=== PATIENT | male | born 1960 | race Caucasian/White ===

== ENCOUNTER 2016-09-10 17:12 | Emergency (ER) | payer BC ==
[2016-09-10 17:54] VITALS: BP 117/69
--- NOTE | 2016-09-10 17:56 | UC ---
Knee Pain HPI - HPI Summary HPI Summary: The patient comes in today for: 1. Right knee pain: Onset: 3 days ago, the knee started feeling-"Not right." The swelling started last night. Palliative/provocative: Pressure makes it worse; no pressure makes it better. Quality: Soreness, Region: Right knee Severity: 1/10 and only with pushing on it. Time: Constant. Associated symptoms: He noticed a lesion which looked like a pustule. He picked at it but did not see any pus. Since he has noticed increased redness, warmth, and tenderness. Fevers: None. 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 HOme Rx: NOthing. He states that he can't take ibuprofen or Aleve due to his blood thinner. He has taken tramadol for his arthritis. * - History of Current Complaint Chief Complaint: UCLowerExtremity Stated Complaint: KNEE PAIN,SWELLING Time Seen by Provider: 09/10/16 17:49 Hx Obtained From: Patient, Family/Stone Grader - Allergies/Home Medications Allergies/Adverse Reactions: Allergies Allergy/AdvReac Type Severity Reaction Status Date / Time No Known Allergies Allergy Verified 09/10/16 17:43 PMH/Surg Hx/FS Hx/Imm Hx Previously Healthy: No - BPH Endocrine History Of: Reports: Dyslipidemia Denies: Diabetes, Thyroid Disease, Hyperthyroidism, Hypothyroidism Cardiovascular History Of: Reports: Cardiac Disorders - A-FIB, Atrial Fibrillation Denies: Hypertension, Pacemaker/ICD, Myocardial Infarction, Congestive Heart Failure, Deep Vein Thrombosis, Bleeding Disorders Respiratory History Of: Denies: COPD, Asthma, Bronchitis, Pneumonia, Pulmonary Embolism GI/ History Of: Reports: Gastroesophageal Reflux Denies: Ulcer, Gastrointestinal Bleed, Gall Bladder Disease, Kidney Stones, Diverticulitis, Renal Disease, Urosepsis Neurological History Of: Denies: TIA, CVA, Dementia, Seizures, Migraine Psychological History Of: Reports: Anxiety, Depression Denies: Bipolar Disorder, Schizophrenia, Post Traumatic Stress Disorder Cancer History Of: Denies: Lung Cancer, Colorectal Cancer, Breast Cancer, Prostate Cancer, Cervical Cancer Other History Of: Anticoagulant Therapy - Xarelto. Negative For: HIV, Hepatitis B, Hepatitis C - Surgical History Surgical History: Yes Surgery Procedure, Year, and Place: gallbladder removed - Family History Known Family History: Positive: Cardiac Disease, Hypertension, Diabetes, Other - HERNIA Family History: Per EMR from 10/22/2015, negative fhx of early CAD or cardiac arrhythmias. - Social History Occupation: Employed Full-time Lives: With Family Alcohol Use: Rare Substance Use Type: None Substance Use Comment - Amount & Last Used: Pt states he drinks one cup a coffee a day now Smoking Status (MU): Former Smoker Type: Cigarettes Length of Time of Smoking/Using Tobacco: 40yrs When Did the Patient Quit Smoking/Using Tobacco: MAY, 2015 Household Exposure Type: Cigarettes - Immunization History Most Recent Influenza Vaccination: never Most Recent Tetanus Shot: 6-10 yrs ago Most Recent Pneumonia Vaccination: none Review of Systems Constitutional: Negative Skin: Rash - Red anterior right knee. Eyes: Negative ENT: Negative Respiratory: Negative Cardiovascular: Negative Gastrointestinal: Negative Genitourinary: Negative All Other Systems Reviewed And Are Negative: Yes Physical Exam Triage Information Reviewed: Yes Appearance: Well-Appearing, No Pain Distress, Well-Nourished Vital Signs Reviewed: Yes Eyes: Positive: Conjunctiva Clear. Negative: Discharge ENT: Positive: Hearing grossly normal. Negative: Pharyngeal erythema, Nasal congestion, Nasal drainage, TM bulging, TM dull, TM red, Tonsillar swelling, Tonsillar exudate Dental: Negative: Gross Decay/Caries @, Dental Fracture @ Neck: Positive: Supple, Nontender, No Lymphadenopathy. Negative: Nuchal Rigidity Respiratory: Positive: Lungs clear, No respiratory distress, No accessory muscle use. Negative: Crackles, Wheezing Cardiovascular: Positive: RRR, No Murmur Abdomen Description: Positive: Nontender, No Organomegaly, Soft. Negative: Distended, Guarding Musculoskeletal: Positive: Strength Intact, ROM Intact, Other: - Right leg: There is some redness over the anterior patella. There is minimal tenderness. There is about several cc's of fluid in the patellar bursa. It is warm. He has full range of motion of the knee. There are no breaks in the skin seen in the area of the right knee. And there are no tendern right inquinal lymph nodes. Neurological: Positive: Alert, Muscle Tone Normal Psychological: Positive: Age Appropriate Behavior, Consolable Skin: Positive: rashes - There is redness of the right knee.. Negative: breakdown Knee Pain Course/Dx - Course Course Of Treatment: Patient was told of the diagnostic options (infectious right knee bursitis, inflammatory right knee bursitis, and cellulitis with bursitis). He was told of his treatment options. At this time, he did not want a tap of the bursa to check for possible infectious bursitis, but did want to take prednisone (he is not able to take NSAIDS) and antibiotics for a possible cellulitis. - Differential Dx/Diagnosis Differential Diagnosis/HQI/PQRI: Bursitis, Cellulitis Provider Diagnoses: Right knee bursitis (inflammatory). Right knee cellulitis. Discharge - Discharge Plan Condition: Stable Disposition: HOME Patient Education Materials: Knee Bursitis (ED), Cellulitis (ED) Referrals: Luis Riley MD [Primary Care Provider] - 3 Days (Please see your primary care provider in seveal days to see how well you are doing. If you get worse, please be seen sooner.) Additional Instructions: Please stay off your knee--no kneeling for the next several days. Please take the medications as directed. IF you get worse, please be seen sooner.
== END 2016-09-10 18:31 | disposition home or self-care (01) ==
LOC: UCEAST 17:12
DX: M70.51 Other bursitis of knee, right knee (principal); Y93.89 Activity, other specified; L03.115 Cellulitis of right lower limb; I48.91 Unspecified atrial fibrillation; Z79.01 Long term (current) use of anticoagulants; Z90.49 Acquired absence of other specified parts of digestive tract; Z87.891 Personal history of nicotine dependence
CPT/HCPCS: 99212; G0463

== ENCOUNTER 2016-09-26 08:20 | Emergency (ER) | payer BC ==
[2016-09-26 08:50] VITALS: BP 117/75
--- NOTE | 2016-09-26 09:07 | UC ---
Respiratory Complaint HPI - HPI Summary HPI Summary: CHEST CONGESTION / COUGH X 7 DAYS + FEVER, CHILLS, BODY ACHES, + NASAL CONGESTION , PND - History of Current Complaint Chief Complaint: UCRespiratory Stated Complaint: WHEEZING,COUGH Time Seen by Provider: 09/26/16 08:23 Hx Obtained From: Patient Onset/Duration: Gradual Onset, Lasting Days - 7, Still Present Timing: Constant Severity Initially: Moderate Severity Currently: Moderate Character: Cough: Productive Aggravating Factors: Exertion, Deep Breaths Associated Signs And Symptoms: Positive: Fever, Chills, Wheezing, URI - Allergies/Home Medications Allergies/Adverse Reactions: Allergies Allergy/AdvReac Type Severity Reaction Status Date / Time No Known Allergies Allergy Verified 09/26/16 08:41 PMH/Surg Hx/FS Hx/Imm Hx Endocrine History Of: Reports: Dyslipidemia Denies: Diabetes, Thyroid Disease, Hyperthyroidism, Hypothyroidism Cardiovascular History Of: Reports: Cardiac Disorders - A-FIB, Atrial Fibrillation Denies: Hypertension, Pacemaker/ICD, Myocardial Infarction, Congestive Heart Failure, Deep Vein Thrombosis, Bleeding Disorders Respiratory History Of: Denies: COPD, Asthma, Bronchitis, Pneumonia, Pulmonary Embolism GI/ History Of: Reports: Gastroesophageal Reflux Denies: Ulcer, Gastrointestinal Bleed, Gall Bladder Disease, Kidney Stones, Diverticulitis, Renal Disease, Urosepsis Neurological History Of: Denies: TIA, CVA, Dementia, Seizures, Migraine Psychological History Of: Reports: Anxiety, Depression Denies: Bipolar Disorder, Schizophrenia, Post Traumatic Stress Disorder Cancer History Of: Denies: Lung Cancer, Colorectal Cancer, Breast Cancer, Prostate Cancer, Cervical Cancer Other History Of: Anticoagulant Therapy - Xarelto. Negative For: HIV, Hepatitis B, Hepatitis C - Surgical History Surgical History: Yes Surgery Procedure, Year, and Place: gallbladder, tonsils removed - Family History Known Family History: Positive: Cardiac Disease, Hypertension, Diabetes, Other - HERNIA Family History: Per EMR from 10/22/2015, negative fhx of early CAD or cardiac arrhythmias. - Social History Alcohol Use: Rare Substance Use Type: None Substance Use Comment - Amount & Last Used: Pt states he drinks one cup a coffee a day now Smoking Status (MU): Former Smoker Type: Cigarettes Length of Time of Smoking/Using Tobacco: 40yrs When Did the Patient Quit Smoking/Using Tobacco: MAY, 2015 Household Exposure Type: Cigarettes - Immunization History Most Recent Influenza Vaccination: never Most Recent Tetanus Shot: 6-10 yrs ago Most Recent Pneumonia Vaccination: none Review of Systems Constitutional: Fever, Chills, Fatigue Skin: Negative Eyes: Negative ENT: Nasal Discharge Respiratory: Cough Cardiovascular: Negative Gastrointestinal: Negative All Other Systems Reviewed And Are Negative: Yes Physical Exam Triage Information Reviewed: Yes Appearance: Well-Appearing, No Pain Distress, Well-Nourished Vital Signs: Initial Vital Signs Temp 99.2 F 09/26/16 08:33 Pulse 65 09/26/16 08:33 Resp 18 09/26/16 08:33 BP 117/75 09/26/16 08:33 Pulse Ox 99 09/26/16 08:33 Vital Signs Reviewed: Yes Eyes: Positive: Conjunctiva Clear ENT: Positive: Normal ENT inspection, Hearing grossly normal, Pharyngeal erythema, Nasal congestion, Nasal drainage, TMs normal Neck exam: Normal Neck: Positive: Supple, Nontender, No Lymphadenopathy Respiratory: Positive: Chest non-tender, Lungs clear, Normal breath sounds Cardiovascular: Positive: RRR, No Murmur, Pulses Normal Skin Exam: Normal UC Diagnostic Evaluation - Laboratory O2 Sat by Pulse Oximetry: 99 Respiratory Course/Dx - Differential Dx/Diagnosis Provider Diagnoses: ACUTE BRONCHITIS Discharge - Discharge Plan Condition: Stable Disposition: HOME Prescriptions: Albuterol HFA INHALER* [Ventolin HFA Inhaler*] 2 puff INH Q4H PRN #1 mdi PRN Reason: Wheezing DOXYcycline CAP(*) [DOXYcycline 100MG CAP(*)] 100 mg PO BID #20 cap Patient Education Materials: Acute Bronchitis (ED) Referrals: Luis Riley MD [Primary Care Provider] - 7 Days
== END 2016-09-26 09:22 | disposition home or self-care (01) ==
LOC: UCCORT 08:20
DX: J20.9 Acute bronchitis, unspecified (principal); Z79.01 Long term (current) use of anticoagulants; Z87.891 Personal history of nicotine dependence
CPT/HCPCS: 99212; G0463

== ENCOUNTER 2016-09-29 12:03 | Emergency (ER) | payer BC ==
[2016-09-29 13:10] VITALS: BP 113/73
--- NOTE | 2016-09-29 13:42 | UC ---
Skin Complaint HPI - HPI Summary HPI Summary: Was treated 3d ago for "bronchitis" with doxycycline and albuterol inhaler. Today he developed a rash on his face, slightly itchy and irritated. No rash elsewhere. No wheezing. Has a productive cough. Feels quite a bit better than he did 3d ago, questions his need for an antibiotic. Able to eat and drink well. - History of Current Complaint [facility] Time Seen by Provider: 09/29/16 13:21 Stated Complaint: SKIN COMPLAINT Hx Obtained From: Patient Onset/Duration: Gradual Onset, Lasting Weeks - 1 Timing: Constant Onset Severity: Mild Current Severity: Mild Character: Redness Aggravating: Nothing Alleviating: Nothing Associated Signs & Symptoms: Positive: Cough, Hoarseness, Rash - facial only. Negative: Throat Tightening - Allergy/Home Medications Allergies/Adverse Reactions: Allergies Allergy/AdvReac Type Severity Reaction Status Date / Time No Known Allergies Allergy Verified 09/26/16 08:41 Review of Systems Constitutional: Fatigue Skin: Rash - facial, bilat Eyes: Negative ENT: Nasal Discharge Respiratory: Cough Cardiovascular: Negative Gastrointestinal: Negative Genitourinary: Negative Motor: Negative Neurovascular: Negative Musculoskeletal: Negative Neurological: Negative Psychological: Negative All Other Systems Reviewed And Are Negative: Yes PMH/Surg Hx/FS Hx/Imm Hx Endocrine History Of: Reports: Dyslipidemia Denies: Diabetes, Thyroid Disease, Hyperthyroidism, Hypothyroidism Cardiovascular History Of: Reports: Cardiac Disorders - afib, Atrial Fibrillation Denies: Hypertension, Pacemaker/ICD, Myocardial Infarction, Congestive Heart Failure, Deep Vein Thrombosis, Bleeding Disorders Respiratory History Of: Denies: COPD, Asthma, Bronchitis, Pneumonia, Pulmonary Embolism GI/ History Of: Reports: Gastroesophageal Reflux Denies: Ulcer, Gastrointestinal Bleed, Gall Bladder Disease, Kidney Stones, Diverticulitis, Renal Disease, Urosepsis Neurological History Of: Denies: TIA, CVA, Dementia, Seizures, Migraine Psychological History Of: Reports: Anxiety, Depression Denies: Bipolar Disorder, Schizophrenia, Post Traumatic Stress Disorder Cancer History Of: Denies: Lung Cancer, Colorectal Cancer, Breast Cancer, Prostate Cancer, Cervical Cancer Other History Of: Anticoagulant Therapy - Xarelto. Negative For: HIV, Hepatitis B, Hepatitis C - Surgical History Surgical History: Yes Surgery Procedure, Year, and Place: gallbladder removed - Family History Known Family History: Positive: Cardiac Disease, Hypertension, Diabetes, Other - HERNIA Family History: Per EMR from 10/22/2015, negative fhx of early CAD or cardiac arrhythmias. - Social History Occupation: Employed Full-time Lives: With Family Alcohol Use: Rare Substance Use Type: None Substance Use Comment - Amount & Last Used: Pt states he drinks one cup a coffee a day now Smoking Status (MU): Former Smoker Type: Cigarettes Length of Time of Smoking/Using Tobacco: 40yrs When Did the Patient Quit Smoking/Using Tobacco: MAY, 2015 Household Exposure Type: Cigarettes - Immunization History Most Recent Influenza Vaccination: never Most Recent Tetanus Shot: 6-10 yrs ago Most Recent Pneumonia Vaccination: none Physical Exam Triage Information Reviewed: Yes Appearance: Well-Appearing, No Pain Distress, Well-Nourished Vital Signs: Initial Vital Signs Temp 98.3 F 09/29/16 13:06 Pulse 59 09/29/16 13:06 Resp 16 09/29/16 13:06 BP 113/73 09/29/16 13:06 Pulse Ox 100 09/29/16 13:06 Vital Signs Reviewed: Yes Eye Exam: Normal Eyes: Positive: Conjunctiva Clear ENT: Positive: Hearing grossly normal, Pharynx normal, Nasal congestion, TMs normal, Muffled/hoarse voice - hoarse Neck exam: Normal Neck: Positive: Supple Respiratory Exam: Normal Respiratory: Positive: Lungs clear, Normal breath sounds, No respiratory distress, No accessory muscle use Cardiovascular Exam: Normal Musculoskeletal Exam: Normal Neurological Exam: Normal Psychological Exam: Normal Skin Exam: Other - patchy red, flat macular rash around left eye, on left and right cheeks Course/Dx - Differential Diagnoses - Skin Complaint Differential Diagnoses: Cellulitis, Contact Dermatitis, Drug Rash, Viral Exanthem - Diagnoses Provider Diagnoses: drug rash Discharge - Discharge Plan Condition: Stable Disposition: HOME Prescriptions: Cephalexin CAP* [Keflex 500 CAP*] 500 mg PO TID #30 cap Patient Education Materials: Antibiotic Medication Allergy (ED) Referrals: Luis Riley MD [Primary Care Provider] - Additional Instructions: STOP the doxycycline. IF your symptoms worsen, particularly if you start to run a fever or have difficulty breathing, then start the new antibiotic. At the moment, your symptoms sound viral, in which case no antibiotic will help. The cough will gradually improve, but may be with you for as long as 5 weeks total
== END 2016-09-29 13:43 | disposition home or self-care (01) ==
LOC: UCCORT 12:03
DX: L27.0 Generalized skin eruption due to drugs and medicaments taken internally (principal); T36.4X5A Adverse effect of tetracyclines, initial encounter; Y92.9 Unspecified place or not applicable; R05 Cough; I48.91 Unspecified atrial fibrillation; Z79.01 Long term (current) use of anticoagulants; Z90.49 Acquired absence of other specified parts of digestive tract; Z87.891 Personal history of nicotine dependence
CPT/HCPCS: 99212; G0463

== ENCOUNTER 2017-08-13 21:33 | Emergency (ER) | payer BC ==
--- NOTE | 2017-08-13 21:41 | UC ---
Upper Extremity HPI - HPI Summary HPI Summary: 57 year old male presents with complains of left index finger abscess . On a side note he had removed a piece of wood from that finger. He also had puss drain form that site x 2. - History of Current Complaint Stated Complaint: lft first finger complaint Time Seen by Provider: 08/13/17 21:41 Hx Obtained From: Patient Onset/Duration: Sudden Onset Severity Initially: Moderate Severity Currently: Moderate Pain Scale Used: 0-10 Numeric - 5 Character: Sharp Alleviating Factor(s): Nothing Associated Signs And Symptoms: Positive: Swelling - Allergies/Home Medications Allergies/Adverse Reactions: Allergies Allergy/AdvReac Type Severity Reaction Status Date / Time No Known Allergies Allergy Verified 08/13/17 22:02 PMH/Surg Hx/FS Hx/Imm Hx Previously Healthy: Yes Other History Of: Anticoagulant Therapy - Xarelto. Negative For: HIV, Hepatitis B, Hepatitis C - Surgical History Surgical History: Yes Surgery Procedure, Year, and Place: gallbladder removed - Family History Known Family History: Positive: Cardiac Disease, Hypertension, Diabetes, Other - HERNIA Family History: Per EMR from 10/22/2015, negative fhx of early CAD or cardiac arrhythmias. - Social History Alcohol Use: Rare Substance Use Type: None Substance Use Comment - Amount & Last Used: Pt states he drinks one cup a coffee a day now Smoking Status (MU): Former Smoker Type: Cigarettes Length of Time of Smoking/Using Tobacco: 40yrs When Did the Patient Quit Smoking/Using Tobacco: MAY, 2015 Household Exposure Type: Cigarettes - Immunization History Most Recent Influenza Vaccination: never Most Recent Tetanus Shot: 6-10 yrs ago Most Recent Pneumonia Vaccination: none Review of Systems Constitutional: Negative Skin: Other - left index finger abscess. Eyes: Negative ENT: Negative Respiratory: Negative Cardiovascular: Negative Gastrointestinal: Negative Genitourinary: Negative Motor: Negative Neurovascular: Negative Musculoskeletal: Negative Neurological: Negative Psychological: Negative All Other Systems Reviewed And Are Negative: Yes Physical Exam Triage Information Reviewed: Yes Vital Signs Reviewed: Yes Eye Exam: Normal ENT Exam: Normal Dental Exam: Normal Neck exam: Normal Neck: Positive: 1 Respiratory Exam: Normal Cardiovascular Exam: Normal Abdominal Exam: Normal Musculoskeletal Exam: Normal Neurological Exam: Normal Psychological Exam: Normal Skin: Positive: Other - left index finger abscess Upper Extremity Course/Dx - Differential Dx/Diagnosis Provider Diagnoses: left index finger abscess Discharge - Discharge Plan Condition: Stable Disposition: HOME Prescriptions: Sulfamethox/Trimethoprim DS* [Bactrim DS 800/160 TAB*] 1 tab PO BID #14 tab Patient Education Materials: Soft Tissue Foreign Body (ED), Abscess (ED) Referrals: Luis Yousif MD [Medical Doctor] - No Primary Care Phys,NOPCP [Primary Care Provider] -
[2017-08-13 22:02] VITALS: BP 146/87
[2017-08-13] MEDS ORDERED: Tetan/Diph/Pertus SYR(Tdap)* 0.5 ML SYR(BOOSTRIX) use SYR IM ONE (22:03)
[2017-08-13] MEDS ORDERED: Lidocaine 1% MPF* 2 ML VIAL INJ ONE (22:03)
[2017-08-13] MEDS ORDERED: Sulfamethox/Trimethoprim DS 800/160* TAB PO ONE ×2 (22:06→22:07)
--- NOTE | 2017-08-14 07:28 | RAD ---
INDICATION: Foreign body. TECHNIQUE: 3 views of the left index finger were obtained. FINDINGS: There is soft tissue swelling. The bones are in normal alignment. No fracture or radiopaque foreign body is seen. Joint spaces appear maintained. IMPRESSION: NO EVIDENCE FOR RADIOPAQUE FOREIGN BODY.
== END 2017-08-13 22:44 | disposition home or self-care (01) ==
LOC: UCCORT 21:33
DX: L02.512 Cutaneous abscess of left hand (principal); Z23 Encounter for immunization; Z79.01 Long term (current) use of anticoagulants; Z90.49 Acquired absence of other specified parts of digestive tract; Z87.891 Personal history of nicotine dependence
CPT/HCPCS: 73140; 87070; 87077; 87186; 87205; 87640; 87641; 90471; 90715; 99213; A9270-GY; G0463

== ENCOUNTER 2017-09-03 16:45 | Emergency (ER) | payer BC ==
[2017-09-03 18:00] VITALS: BP 126/74
[2017-09-03] MEDS ORDERED: Lidocaine 1%* 5 ML VIAL INJ ONE (18:43)
--- NOTE | 2017-09-03 19:19 | UC ---
Skin Complaint HPI - HPI Summary HPI Summary: pt c/o of tender area in left index finger. Pt was seen two weeks ago tih concern for FB in left index finger. I & D done with purulent drainage. Pt reports that the "abscess" has returned and can feel a "hard object in finger" X ray done at previous visit, no FB noted. - History of Current Complaint Chief Complaint: UCUpperExtremity Time Seen by Provider: 09/03/17 18:08 Stated Complaint: RE-CK LEFT POINTER FINGER Hx Obtained From: Patient Onset/Duration: Gradual Onset, Lasting Days, Worse Since - osnet Skin Exposure Onset/Duration: Weeks Ago Timing: Constant Onset Severity: Mild Current Severity: Moderate Pain Intensity: 0 Location: Discrete - left index finger Character: Swelling, Redness, Painful Aggravating Factor(s): Touch Alleviating Factor(s): Nothing Associated Signs & Symptoms: Positive: Tenderness Related History: Foreign Body - Allergy/Home Medications Allergies/Adverse Reactions: Allergies Allergy/AdvReac Type Severity Reaction Status Date / Time No Known Allergies Allergy Verified 09/03/17 17:51 Review of Systems Constitutional: Negative Skin: Other - tenderness, swelling Eyes: Negative ENT: Negative Respiratory: Negative Cardiovascular: Negative Gastrointestinal: Negative Genitourinary: Negative Motor: Negative Neurovascular: Negative Musculoskeletal: Edema - left lindex finger MIP joint Neurological: Negative Psychological: Negative Is Patient Immunocompromised?: No All Other Systems Reviewed And Are Negative: Yes PMH/Surg Hx/FS Hx/Imm Hx Previously Healthy: Yes Other History Of: Anticoagulant Therapy - Xarelto. Negative For: HIV, Hepatitis B, Hepatitis C - Surgical History Surgical History: Yes Surgery Procedure, Year, and Place: gallbladder removed - Family History Known Family History: Positive: Cardiac Disease, Hypertension, Diabetes, Other - HERNIA Family History: Per EMR from 10/22/2015, negative fhx of early CAD or cardiac arrhythmias. - Social History Occupation: Employed Full-time Lives: With Family Alcohol Use: Rare Substance Use Type: None Substance Use Comment - Amount & Last Used: Pt states he drinks one cup a coffee a day now Smoking Status (MU): Former Smoker Type: Cigarettes Length of Time of Smoking/Using Tobacco: 40yrs Have You Smoked in the Last Year: Yes When Did the Patient Quit Smoking/Using Tobacco: MAY, 2015 Household Exposure Type: Cigarettes - Immunization History Most Recent Influenza Vaccination: never Most Recent Tetanus Shot: 1/10/18 Most Recent Pneumonia Vaccination: none Physical Exam Triage Information Reviewed: Yes Appearance: Well-Appearing Vital Signs: Initial Vital Signs Temp 98.7 F 09/03/17 17:52 Pulse 65 09/03/17 17:52 Resp 16 09/03/17 17:52 BP 126/74 09/03/17 17:52 Pulse Ox 99 09/03/17 17:52 Eye Exam: Normal ENT Exam: Normal Dental Exam: Normal Neck exam: Normal Respiratory Exam: Normal Cardiovascular Exam: Normal Musculoskeletal: Positive: Edema @ - left index finger, MIP joint Neurological Exam: Normal Psychological Exam: Normal Skin Exam: Other - left index finger, MIP joint, slight swelling, tenderness, calloused area Course/Dx - Course Course Of Treatment: 1 cm long 2 mm wide splinter removed. - Differential Diagnoses - Skin Complaint Differential Diagnoses: Abscess, Foreign Body - Diagnoses Provider Diagnoses: FB removal. Incision and drainage of abscess Procedures - Incision and Drainage Site: left index finger, MIP joint, small purulent drainage, FB removed Anesthesia: Digital Instrument(s): Scalpel Discharge - Discharge Plan Condition: Stable Disposition: HOME Prescriptions: Cephalexin CAP* [Keflex 500 CAP*] 500 mg PO Q12H #20 cap Patient Education Materials: Soft Tissue Foreign Body (ED), Abscess (ED) Referrals: No Primary Care Phys,NOPCP [Primary Care Provider] -
== END 2017-09-03 19:32 | disposition home or self-care (01) ==
LOC: UCCORT 16:45
DX: S60.451A Superficial foreign body of left index finger, initial encounter (principal); W45.8XXA Other foreign body or object entering through skin, initial encounter; Y92.9 Unspecified place or not applicable; L03.012 Cellulitis of left finger
CPT/HCPCS: 10120; 99212; G0463

== ENCOUNTER 2018-08-05 07:02 | Emergency (ER) | payer BC ==
[2018-08-05 07:25] VITALS: BP 135/75
--- NOTE | 2018-08-05 07:45 | UC ---
Respiratory Complaint HPI - HPI Summary HPI Summary: Patient presents to urgent care with his . Patient denies a history of respiratory diagnoses patient patient does have A. fib and hypertension. Patient states last week, last , he had cold and congestion. Patient states he took [id number] Mucinex and his symptoms improved. Patient states he felt well Friday and Friday. Patient states he woke up yesterday morning with a coarse cough. Patient states he has coughing fits that make him feel nauseous and gags. Patient has not vomited. Patient states he has wheezing if he "take a deep breathe." Patient states his cough is mostly dry but occasionally has yellow sputum. Patient with chills but no documented fever. Pt with WALKER from coughing. No analgesia taken. Pt tool Mucinex this am. Patient did not get the flu vaccine this year. Patient was around his grandchildren ast week that were sick with "head colds." Patient states he is in sinus rhythm for the last 6 months. Patient is on metoprolol and flecainide which keeps it "regular." Patient is not on anticoagulation. Patient had negative cardiac stress test in the fall of 2017. Patient's is not sick. Patient used to smoke but quit 3 years ago. Patient's medications reviewed this visit. - History of Current Complaint Chief Complaint: UCRespiratory Stated Complaint: COUGH Time Seen by Provider: 08/05/18 07:37 Hx Obtained From: Patient, Family/High Reach Operator Timing: Intermittent Episodes Severity Initially: Mild Severity Currently: Mild Pain Intensity: 4 - Allergies/Home Medications Allergies/Adverse Reactions: Allergies Allergy/AdvReac Type Severity Reaction Status Date / Time No Known Allergies Allergy Verified 08/05/18 07:25 Home Medications: Home Medications Flecainide TAB* [Tambocor TAB*] 100 mg PO BID 08/05/18 [History Confirmed ] Naproxen Sodium [Naproxen 220 mg] 220 mg PO ONCE PRN 08/05/18 [History Confirmed 08/05/18] Phenylephrine/Dm/Acetaminop/GG [Mucinex Fast-Max Cold-Flu Liq] 180 ml PO ONCE PRN 08/05/18 [History Confirmed 08/05/18] traMADol TAB* [Ultram*] 1 - 2 tab PO Q6HR PRN 08/05/18 [History Confirmed ] PMH/Surg Hx/FS Hx/Imm Hx Previously Healthy: Yes Cardiovascular History: Hypertension, Atrial Fibrillation Other History Of: Anticoagulant Therapy - Xarelto. Negative For: HIV, Hepatitis B, Hepatitis C - Surgical History Surgical History: Yes Surgery Procedure, Year, and Place: gallbladder removed - Family History Known Family History: Positive: Cardiac Disease, Hypertension, Diabetes, Other - HERNIA, Non-Contributory Family History: Per EMR from 10/22/2015, negative fhx of early CAD or cardiac arrhythmias. - Social History Lives: With Family Alcohol Use: Rare Substance Use Type: None Substance Use Comment - Amount & Last Used: Pt states he drinks one cup a coffee a day now Smoking Status (MU): Former Smoker Type: Cigarettes Length of Time of Smoking/Using Tobacco: 40yrs Have You Smoked in the Last Year: Yes When Did the Patient Quit Smoking/Using Tobacco: MAY, 2015 Household Exposure Type: Cigarettes - Immunization History Most Recent Influenza Vaccination: never Most Recent Tetanus Shot: 08/13/17 Most Recent Pneumonia Vaccination: none Review of Systems All Other Systems Reviewed And Are Negative: Yes Constitutional: Positive: Chills, Fatigue Skin: Positive: Negative Respiratory: Positive: Cough, Other - wheezing Cardiovascular: Positive: Negative Gastrointestinal: Positive: Negative Genitourinary: Positive: Negative Neurological: Positive: Headache - from coughing Physical Exam - Summary Physical Exam Summary: Vital Signs Reviewed: Yes A+Ox3, no distress Eyes: Conjunctiva Clear, MARISOL. EOM intact and full ENT: Hearing grossly normal TM x 2 clear, turbinates inflammed and boggy, mmoist, uvula midline, no exudate, no erythema Neck: Positive: Supple Respiratory: Positive: coarse cough, expiratory wheeze diffuse, right upper lung field rhonci no accessory muscle use Cardiovascular: RRR nl s1, s2 no m/r CBT <2 sec abd soft + BS nt/nd no guarding, no distension Musculoskeletal Exam: NOLAN x 4 without difficulty Strength Intact, ROM Intact Neurological: Positive: Alert, + sensation throughout Psychological: Positive: Normal Response To Family Skin: Positive: no rash, no ecchymosis Triage Information Reviewed: Yes Vital Signs: Initial Vital Signs Temp 98.7 F 08/05/18 07:12 Pulse 73 08/05/18 07:12 Resp 20 08/05/18 07:12 BP 135/75 08/05/18 07:12 Pulse Ox 95 08/05/18 07:12 Diagnostic Evaluation - Laboratory O2 Sat by Pulse Oximetry: 95 - Radiology Radiology Interpretation Completed By: Radiologist - Patient Name: MARSHALL HELTON Medical Record#: [id number] Re-Evaluation - Re-Evaluation First Eval Re-Evaluation Time: 08:57 Change: Improved - Pt markedly improved - no cough, no wheeze able to take deep breaths reviewed CXR with pt and recommend hydration will give amox - h/o tobacco use, relpasing illness pred mdi with spacer care with decongestants second to h/o a fib Respiratory Course/Dx - Course Course Of Treatment: Pt presents to with . Pt states has had cough and congestion last week - sx improved and returned on Friday. pt with coarse cough with wheezing. Pt denies sob except with coughing. Pt with chills, no fevers. Pt with h/o a fib and previous tobacco use. On exam, slightly decreased sat at 95% Pt with expiratory wheeze. rhonci right upper lobe. Will check CXR. duo neb and reassess. suspect bronchitis - Differential Dx/Diagnosis Provider Diagnosis: Acute bronchitis Discharge - Sign-Out/Discharge Documenting (check all that apply): Patient Departure All imaging exams completed and their final reports reviewed: Yes - Discharge Plan Condition: Stable Disposition: HOME Prescriptions: Albuterol HFA INHALER* [Ventolin HFA Inhaler*] 2 puff INH Q4H PRN #1 mdi PRN Reason: wheeze Amoxicillin PO (*) [Amoxicillin 500 MG CAP*] 500 mg PO Q12H #20 cap Inhaler, Assist Devices [Aerochamber Mv] 1 each PO Q4HR #1 spacer predniSONE TAB* [Deltasone TAB*] 50 mg PO DAILY #5 tab Patient Education Materials: Acute Bronchitis (ED) Referrals: Luis Riley MD [Primary Care Provider] - Additional Instructions: -Take antibiotics and prednisone exactly as prescribed until gone -Use your albuterol puffer - 2 puffs every 4 hours for the next 2 days - then as needed -Stay well hydrated - avoid excess caffeine and all alcohol - eat regular, healthy meals - - humidify the air in the room where you sleep - boil water, run a hot steam shower, vaporizer, cups of water by heat register - okay to take over the counter decongestant and cough medication - you should avoid products with psueduephederine or phenylepherine as this may increased your heart rate and blood pressure. -- These infections are spread by secretions - do NOT share eating or drinking utensils - clean items you share with other people such as cell phones, computer mouse, TV remote, computer tablets,etc.. Once you have been antibiotics for 2 days, change your toothbrush and your pillowcase. -Contact your doctor to arrange a follow-up appointment this week. Call your doctor, return here or go to the emergency department with any questions or concerns - Billing Disposition and Condition Condition: STABLE Disposition: Home
[2018-08-05] MEDS ORDERED: Albuterol/Ipratropium NEB.SOL* Albuterol 2.5 MG/Ipratropium 0.5 MG 3 ML INH ONE (07:51)
[2018-08-05] MEDS ORDERED: Acetaminophen TAB* 325 MG PO ONE (08:13)
== END 2018-08-05 09:02 | disposition home or self-care (01) ==
LOC: UCCORT 07:02
DX: J20.9 Acute bronchitis, unspecified (principal); I48.91 Unspecified atrial fibrillation; I10 Essential (primary) hypertension; Z87.891 Personal history of nicotine dependence
CPT/HCPCS: 71046; 99212; A9270-GY; G0463

== ENCOUNTER 2018-08-09 18:28 | Emergency (ER) | payer BC ==
[2018-08-09 18:48] VITALS: BP 142/80
--- NOTE | 2018-08-09 19:09 | UC ---
Respiratory Complaint HPI - HPI Summary HPI Summary: Seen 08/05/18 with sudden onset coughing with SOB. Got nebulizer, antibiotics and started on prednisone. Still coughing. No sinus pain. Occasional sweats. - History of Current Complaint Chief Complaint: UCRespiratory Stated Complaint: COUGH/CONGESTION Hx Obtained From: Patient Onset/Duration: Sudden Onset, Lasting Days - 4 Timing: Constant Severity Initially: Moderate Severity Currently: Moderate Pain Intensity: 4 Character: Cough: Nonproductive Alleviating Factors: Bronchodilator Associated Signs And Symptoms: Positive: Chills, Wheezing, URI, Hoarseness - Allergies/Home Medications Allergies/Adverse Reactions: Allergies Allergy/AdvReac Type Severity Reaction Status Date / Time No Known Allergies Allergy Verified 08/09/18 18:48 PMH/Surg Hx/FS Hx/Imm Hx Endocrine History: Dyslipidemia Cardiovascular History: Atrial Fibrillation Other History Of: Anticoagulant Therapy - Xarelto. Negative For: HIV, Hepatitis B, Hepatitis C - Surgical History Surgical History: Yes Surgery Procedure, Year, and Place: gallbladder removed - Family History Known Family History: Positive: Cardiac Disease, Hypertension, Diabetes, Other - HERNIA, Non-Contributory Family History: Per EMR from 10/22/2015, negative fhx of early CAD or cardiac arrhythmias. - Social History Occupation: Employed Full-time Lives: With Family Alcohol Use: Rare Substance Use Type: None Substance Use Comment - Amount & Last Used: Pt states he drinks one cup a coffee a day now Smoking Status (MU): Former Smoker Type: Cigarettes Length of Time of Smoking/Using Tobacco: 40yrs Have You Smoked in the Last Year: Yes When Did the Patient Quit Smoking/Using Tobacco: MAY, 2015 Household Exposure Type: Cigarettes - Immunization History Most Recent Influenza Vaccination: never Most Recent Tetanus Shot: 08/13/17 Most Recent Pneumonia Vaccination: none Review of Systems All Other Systems Reviewed And Are Negative: Yes Constitutional: Positive: Chills, Fatigue ENT: Positive: Sore Throat, Nasal Discharge Respiratory: Positive: Shortness Of Breath, Cough Is Patient Immunocompromised?: No Physical Exam Triage Information Reviewed: Yes Appearance: No Pain Distress, Well-Nourished, Ill-Appearing Vital Signs: Initial Vital Signs Temp 98.1 F 08/09/18 18:43 Pulse 57 08/09/18 18:43 Resp 18 08/09/18 18:43 BP 142/80 08/09/18 18:43 Pulse Ox 97 08/09/18 18:43 Vital Signs Reviewed: Yes Eyes: Positive: Conjunctiva Inflamed - OS>OD ENT: Positive: Pharynx normal, TMs normal Neck exam: Normal Respiratory: Positive: Wheezing - expiratory wheeze Cardiovascular Exam: Normal Musculoskeletal Exam: Normal Neurological Exam: Normal Psychological Exam: Normal Skin Exam: Normal UC Diagnostic Evaluation - Laboratory O2 Sat by Pulse Oximetry: 97 Respiratory Course/Dx - Differential Dx/Diagnosis Differential Diagnosis/HQI/PQRI: Asthma, Exacerbation Of COPD, Lower Resp Infection Provider Diagnosis: Upper respiratory infection, Bronchospasm, acute Discharge - Sign-Out/Discharge Documenting (check all that apply): Patient Departure All imaging exams completed and their final reports reviewed: No Studies - Discharge Plan Condition: Stable Disposition: HOME Prescriptions: predniSONE TAB* [Deltasone 20 MG TAB*] 60 mg PO DAILY #18 tab Patient Education Materials: Upper Respiratory Infection (ED), Bronchospasm (ED ), Prednisone (By mouth) Referrals: Luis Riley MD [Primary Care Provider] - - Billing Disposition and Condition Condition: STABLE Disposition: Home
[2018-08-09] MEDS ORDERED: predniSONE TAB* 20 MG PO ONE (19:11)
== END 2018-08-09 19:22 | disposition home or self-care (01) ==
LOC: UCCORT 18:28
DX: J06.9 Acute upper respiratory infection, unspecified (principal); J98.01 Acute bronchospasm; Z87.891 Personal history of nicotine dependence
CPT/HCPCS: 99212; G0463; J7512

== ENCOUNTER 2018-09-02 07:00 | Emergency (ER) | payer BC ==
[2018-09-02 07:09] VITALS: BP 136/89
--- NOTE | 2018-09-02 07:27 | UC ---
Throat Pain/Nasal [place] HPI - HPI Summary HPI Summary: Patient presents to urgent care with 6 days of sinus congestion, postnasal drip. Patient reports he's got facial tenderness achiness. Patient denies nausea vomiting. Patient's taken DayQuil and NyQuil little relief. Patient states he feels warm but has not had a fever. Patient with mild sore throat from postnasal drip. Patient does use CPAP which is humidified. Patient was treated for bronchitis beginning part of this month with a course of amoxicillin. Patient states he finally felt better for about 5 days on the sinus congestion Didn't. Patient's with similar symptoms. Patient also reports she's been having some green stools. Patient denies excessive last. No abdominal pain. No bloating. Patient states he drinks a lot of Gatorade this may be the cause. Patient Patient without a history of sinus surgery. Patient's medications reviewed this visit. - History of Current Complaint Chief Complaint: UCGeneralIllness Stated Complaint: SINUS COMPLAINT Time Seen by Provider: 09/02/18 07:17 Hx Obtained From: Patient Pain Intensity: 4 - Allergies/Home Medications Allergies/Adverse Reactions: Allergies Allergy/AdvReac Type Severity Reaction Status Date / Time No Known Allergies Allergy Verified 09/02/18 07:09 PMH/Surg Hx/FS Hx/Imm Hx Previously Healthy: Yes Cardiovascular History: Hypertension, Atrial Fibrillation Other History Of: Anticoagulant Therapy - Xarelto. Negative For: HIV, Hepatitis B, Hepatitis C - Surgical History Surgical History: Yes Surgery Procedure, Year, and Place: gallbladder removed - Family History Known Family History: Positive: Cardiac Disease, Hypertension, Diabetes, Other - HERNIA, Non-Contributory Family History: Per EMR from 10/22/2015, negative fhx of early CAD or cardiac arrhythmias. - Social History Occupation: Employed Full-time Lives: With Family Alcohol Use: Rare Substance Use Type: None Substance Use Comment - Amount & Last Used: Pt states he drinks one cup a coffee a day now Smoking Status (MU): Former Smoker Type: Cigarettes Length of Time of Smoking/Using Tobacco: 40yrs Have You Smoked in the Last Year: Yes When Did the Patient Quit Smoking/Using Tobacco: MAY, 2015 Household Exposure Type: Cigarettes - Immunization History Most Recent Influenza Vaccination: never Most Recent Tetanus Shot: 08/13/17 Most Recent Pneumonia Vaccination: none Review of Systems All Other Systems Reviewed And Are Negative: Yes Constitutional: Positive: Fever, Fatigue ENT: Positive: Ear Ache - popping, Nasal Discharge, Sinus Congestion, Sinus Pain /Tenderness Respiratory: Positive: Negative Cardiovascular: Positive: Negative Gastrointestinal: Positive: Negative Physical Exam - Summary Physical Exam Summary: Vital Signs Reviewed: Yes A+Ox3, no distress, congested Eyes: Conjunctiva Clear, MARISOL. EOM intact and full ENT: Hearing grossly normal TM x 2 clear, turbinates inflammed and boggy, + thick PND, mmoist, uvula midline, no exudate, no erythema; + TTP maxillary sinuses R>L Neck: Positive: Supple Respiratory: Positive: No respiratory distress, No accessory muscle use + CTA throughout no w/r Cardiovascular: RRR nl s1, s2 no m/r CBT <2 sec abd soft + BS nt/nd no guarding, no distension Musculoskeletal Exam: NOLAN x 4 without difficulty Strength Intact, ROM Intact Neurological: Positive: Alert, + sensation throughout Psychological: Positive: Normal Response To Family Skin: Positive: no rash, no ecchymosis Triage Information Reviewed: Yes Vital Signs: Initial Vital Signs Temp 96.9 F 09/02/18 07:06 Pulse 58 09/02/18 07:06 Resp 17 09/02/18 07:06 BP 136/89 09/02/18 07:06 Pulse Ox 100 09/02/18 07:06 Throat Pain/Nasal Course/Dx - Course Course Of Treatment: Patient presents with 6 days of sinus congestion and pressure as well as postnasal drip. Patient states his nose feels stuffy in his throat hurts. Patient has taken DayQuil and NyQuil little relief. Tactile temperature. On exam patient with body inflamed turbinates thick postnasal drip. Patient's lungs are clear belly soft. Will start patient on a course of doxycycline. Flonase. Recommended you humidify his CPAP. Strict return precautions. Strongly advised patient to follow-up with primary care provider is he's had 3 visits to urgent care with bronchitis and sinusitis this month. Patient states agreement with plan will call for appointment. - Differential Dx/Diagnosis Provider Diagnosis: Rhinosinusitis Discharge - Sign-Out/Discharge Documenting (check all that apply): Patient Departure All imaging exams completed and their final reports reviewed: No Studies - Discharge Plan Condition: Stable Disposition: HOME Prescriptions: DOXYcycline CAP(*) [DOXYcycline 100MG CAP(*)] 100 mg PO BID #19 cap Fluticasone NASAL SPRAY 50MCG* [Flonase NASAL SPRAY 50MCG*] 1 spray BOTH NARES DAILY #1 btl Patient Education Materials: Rhinosinusitis (ED) Referrals: Luis Riley MD [Primary Care Provider] - Additional Instructions: - Stay well hydrated. Drink plenty of non-alcoholic, non-caffinated beverages. - Alternate ibuprofen (Advil, Motrin) 600mg and Tylenol every 3 hours for pain or fever. Take with food. Do NOT take for more than 4-5 days. - These infections are spread by secretions - do NOT share eating or drinking utensils - clean items you share with other people such as cell phones, computer mouse, TV remote, computer tablets,etc. Once you have been antibiotics for 2 days, change your toothbrush and your pillowcase. - get plenty of restful sleep - humidify the air in the room where you sleep - boil water, run a hot steam shower, vaporizer, cups of water by heat register - thoroughly clean your CPAP and make sure humidified - okay to take over the Claritin, Christelle, Zytrec - use nasal spray as prescribed - contact your doctor today to schedule a follow-up appointment to your urgent care visit and recheck your diarrhea. If you develop abdominal pain, fever, bloating or other concerns it is recommended you contact your doctor - Billing Disposition and Condition Condition: STABLE Disposition: Home
[2018-09-02] MEDS ORDERED: DOXYcycline CAP(*) 100 MG PO ONE (07:33)
== END 2018-09-02 07:41 | disposition home or self-care (01) ==
LOC: UCCORT 07:00
DX: J32.9 Chronic sinusitis, unspecified (principal); J02.9 Acute pharyngitis, unspecified; I10 Essential (primary) hypertension; I48.91 Unspecified atrial fibrillation; Z79.01 Long term (current) use of anticoagulants; Z87.891 Personal history of nicotine dependence; Z99.89 Dependence on other enabling machines and devices
CPT/HCPCS: 99212; A9270-GY; G0463

== ENCOUNTER 2018-09-03 16:14 | Emergency (ER) | payer BC ==
[2018-09-03 17:38] LABS: Influenza A Molecular NEGATIVE (Negative); Influenza B Molecular NEGATIVE (Negative)
--- NOTE | 2018-09-03 17:43 | ED ---
Influenza-Like Illness - HPI Summary HPI Summary: 58 year old M presenting to [facility] accompanied by with a chief complaint of non-productive cough since 08/05/18, worse since 09/02/18. The patient rates the pain 10/10 in severity. Symptoms aggravated by nothing. Symptoms alleviated by nothing. Patient reports shortness of breath, headache, nasal congestion, chills, myalgia, fever. Patient denies dizziness, blurred vision. Patient has treated the pain with ibuprofen [employer] without relief. Patient was seen at [facility] earlier this month, during which CXR and flu swab were taken, both of which were negative. Patient was discharged home with steroids, antibiotics, nebulizer, and inhaler for dx bronchitis. Since then, patient has not felt better, so presented to [facility] yesterday, 09/02/18, discharged home with Doxycycline for dx sinus infection. Patient reports feeling worse today. Patient is a former smoker. - History of Current Complaint Chief Complaint: EDFluSymptoms Time Seen by Provider: 09/03/18 16:44 Hx Obtained From: Patient Onset/Duration: Lasting Weeks - 4, Still Present, Worse Since - yesterday Severity: Severe - Allergy/Home Medications Allergies/Adverse Reactions: Allergies Allergy/AdvReac Type Severity Reaction Status Date / Time No Known Allergies Allergy Verified 09/03/18 16:42 PMH/Surg Hx/FS Hx/Imm Hx Previously Healthy: No Endocrine/Hematology History: Reports: Hx Anticoagulant Therapy - Xarelto. Denies: Hx Diabetes, Hx Thyroid Disease Cardiovascular History: Reports: Hx Atrial Fibrillation, Hx Hypercholesterolemia , Other Cardiovascular Problems/Disorders - rapid afib, cardioversion Denies: Hx Congestive Heart Failure, Hx Deep Vein Thrombosis, Hx Hypertension , Hx Myocardial Infarction, Hx Pacemaker/ICD Respiratory History: Reports: Hx Sleep Apnea - not diagnosed Denies: Hx Asthma, Hx Chronic Obstructive Pulmonary Disease (COPD), Hx Lung Cancer, Hx Pneumonia, Hx Pulmonary Embolism GI History: Reports: Hx Gastroesophageal Reflux Disease Denies: Hx Gall Bladder Disease, Hx Gastrointestinal Bleed, Hx Ulcer, Hx Urosepsis History: Denies: Hx Kidney Stones, Hx Renal Disease Musculoskeletal History: Reports: Hx Back Problems Sensory History: Reports: Hx Contacts or Glasses Opthamlomology History: Reports: Hx Contacts or Glasses Neurological History: Denies: Hx Dementia, Hx Migraine, Hx Seizures, Hx Transient Ischemic Attacks (TIA) Psychiatric History: Reports: Hx Anxiety, Hx Depression Denies: Hx Schizophrenia, Hx Bipolar Disorder - Surgical History Surgery Procedure, Year, and Place: gallbladder removed Hx Anesthesia Reactions: No - Immunization History Date of Tetanus Vaccine: unknown Date of Influenza Vaccine: none Immunizations Up to Date: Yes Infectious Disease History: No Infectious Disease History: Denies: Traveled Outside the [place] in Last 30 Days - Family History Known Family History: Positive: Cardiac Disease, Hypertension, Diabetes, Other - HERNIA Family History: Per EMR from 10/22/2015, negative fhx of early CAD or cardiac arrhythmias. - Social History Alcohol Use: Rare Hx Substance Use: No Substance Use Type: Reports: None Substance Use Comment - Amount & Last Used: Pt states he drinks one cup a coffee a day now Hx Tobacco Use: Yes Smoking Status (MU): Former Smoker Type: Cigarettes Length of Time of Smoking/Using Tobacco: 40yrs Have You Smoked in the Last Year: Yes Review of Systems Positive: Fever, Chills Negative: Blurred Vision, Erythema ENT: Other - nasal congestion Negative: Sore Throat Negative: Chest Pain Positive: Shortness Of Breath, Cough Negative: Abdominal Pain, Vomiting, Nausea Negative: dysuria, hematuria Positive: Myalgia. Negative: Edema Negative: Rash Neurological: Negative - Dizziness Positive: Headache All Other Systems Reviewed And Are Negative: Yes Physical Exam - Summary Physical Exam Summary: Constitutional: Well-developed, Well-nourished, Alert. (-) Distressed Skin: Warm, Dry HENT: Normocephalic; Atraumatic Eyes: Conjunctiva normal Neck: Musculoskeletal ROM normal neck. (-) JVD, (-) Stridor, (-) Tracheal deviation Cardio: Rhythm regular, rate normal, Heart sounds normal; Intact distal pulses; The pedal pulses are 2+ and symmetric. Radial pulses are 2+ and symmetric. (-) Murmur Pulmonary/Chest wall: Lung sounds are diminished in both bases with slight crackles in the right lower Abd: Soft, (-) epigastric tenderness, (-) Distension, (-) Guarding, (-) Rebound Musculoskeletal: (-) Edema Lymph: (-) Cervical adenopathy Neuro: Alert, Oriented x3 Psych: Mood and affect Normal Triage Information Reviewed: Yes Vital Signs On Initial Exam: Initial Vitals Temp Pulse Resp BP Pulse Ox 97.8 F 66 18 143/79 93 09/03/18 16:20 09/03/18 16:20 09/03/18 16:20 09/03/18 16:20 09/03/18 16:20 Vital Signs Reviewed: Yes Diagnostics - Vital Signs Vital Signs Temp Pulse Resp BP Pulse Ox 09/03/18 16:20 97.8 F 66 18 143/79 93 - Laboratory Result Diagrams: 09/03/18 18:16 09/03/18 18:16 Lab Statement: Any lab studies that have been ordered have been reviewed, and results considered in the medical decision making process. - Radiology CXR Radiology Interpretation Completed By: Radiologist Summary of Radiographic Findings: NO ACTIVE CARDIOPULMONARY DISEASE. ED physician has reviewed this report. - CT Brain CT Interpretation Completed By: Radiologist Summary of CT Findings: 1. There is mild age-related diffuse cerebral and cerebellar volume loss and chronic microvascular ischemic disease. 2. No acute intracranial pathology. ED physician has reviewed this report. Chest/Thorax CT Interpretation Completed By: Radiologist Summary of CT Findings: 1. There is mild mediastinal lymphadenopathy. 2. No visible acute pulmonary embolism. 3. There is minimal right basilar atelectatic change but the lungs and pleural spaces are otherwise clear. ED physician has reviewed this report. Re-Evaluation - Re-Evaluation First Eval Re-Evaluation Time: 20:46 Comment: Patient is feeling better after neb and fluids Second Eval Re-Evaluation Time: 21:54 Comment: Patient is agreeable to discharge Flu Symptom Course/Dx - Course Course Of Treatment: 58 year old M presenting to [facility] complains of non- productive cough, shortness of breath, headache, chills, myalgia, fever since , worse since 09/02/18. I suspected that headache is most likely msuculoskeletal, however has been persistent and disabling, so will get CT Brain. CT Brain and CXR show no acute pathology. Chest/Thorax CTA revealed 1. There is mild mediastinal lymphadenopathy. 2. No visible acute pulmonary embolism. 3. There is minimal right basilar atelectatic change but the lungs and pleural spaces are otherwise clear. Rapid flu tests were negative. Bloodwork was unremarkable. In ED course, patient was given Duoneb, Toradol, and Robitussin. Patient feels better after Duoneb and IV fluids. He will be discharged home with prescription for Augmentin, Codiene, and Medrol and with follow up from his primary care provider in 3 days. He was instructed to return to the ED for new or worsening symtpoms. He and his are agreeable to this plan. - Diagnoses Provider Diagnoses: Bronchitis Discharge - Sign-Out/Discharge Documenting (check all that apply): Patient Departure - Discharge Patient Received Moderate/Deep Sedation with Procedure: No - Discharge Plan Condition: Stable Disposition: HOME Prescriptions: Amoxicillin/Clavulanate TAB* [Augmentin TAB 875*] 875 mg PO BID #14 tab Codeine Phosphate/Guaifenesin [Codeine/Guaifenesin 100-10 mg/5Ml] 5 ml PO Q6H PRN #100 ml MDD 20 PRN Reason: Cough methylPREDNISolone [Medrol Dosepak 4 MG*] 4 mg PO .SEE DILCIA INSTRUCTION #1 packet Patient Education Materials: Acute Bronchitis (ED) Forms: *Work Release Referrals: Luis Riley MD [Primary Care Provider] - 4 Days Additional Instructions: Follow up with Dr. Riley, your primary care provider, in 4 days on 09/07/18. RETURN TO THE EMERGENCY DEPARTMENT FOR NEW OR WORSENING SYMPTOMS. - Billing Disposition and Condition Condition: STABLE Disposition: Home - Attestation Statements Document Initiated by Scribe: Yes Documenting Scribe: Lois Cai Provider For Whom Petar is Documenting (Include Credential): Herb Short MD Scribe Attestation: Lois Willoughby, scribed for Herb Short MD on 09/04/18 at 1308. Scribe Documentation Reviewed: Yes Provider Attestation: The documentation as recorded by the Lois shelton accurately reflects the service I personally performed and the decisions made by , Herb Short MD Status of Scribe Document: Viewed
[2018-09-03] MEDS ORDERED: NS 0.9% 1000 ML** 1,000 ML IV ONE (17:47)
[2018-09-03] MEDS ORDERED: Albuterol/Ipratropium NEB.SOL* Albuterol 2.5 MG/Ipratropium 0.5 MG 3 ML INH ONE (17:47)
[2018-09-03] MEDS ORDERED: Ketorolac INJ* 30 MG/ML 1 ML VIAL IV PUSH ONE (17:47)
[2018-09-03 18:27] LABS: ABS Basophils 0 10^3/ul (0-0.2); ABS Eosinophils 0.3 10^3/ul (0-0.6); ABS Neutrophils 9.5 10^3/ul (1.5-7.7); ABS Nucleated RBC 0 10^3/ul; Hematocrit 40 % (42-52); Hemoglobin 13.7 g/dl (14.0-18.0); Lymphocyte % 15.3 %; Mean Corpuscular HGB Conc 34 g/dl (31-36); Mean Corpuscular Hemoglobin 30 pg (27-31); Mean Corpuscular Volume 88 fL (80-94); Mean Platelet Volume 7.2 fL (7.4-10.4); Nucleated Red Blood Cells % 0.1; Platelet Count 199 10^3/ul (150-450); Red Blood Count 4.54 10^6/ul (4.00-5.40); Red Cell Distribution Width 13 % (10.5-15); White Blood Count 12.8 10^3/ul (3.5-10.8)
[2018-09-03 18:42] LABS: Activated Partial Thrombo Time 28.1 seconds (26.0-36.3); INR 0.94 (0.77-1.02)
[2018-09-03 18:45] LABS: Albumin 4.2 g/dL (3.2-5.2); Albumin/Globulin Ratio 1.7 (1-3); BUN/Creatinine Ratio 17.6 (8-20); Calcium 9.3 mg/dL (8.6-10.3); EGFR African American 111.6 (>60); EGFR Non-African American 92.3 (>60); Globulin 2.5 g/dL (2-4); Potassium 4.2 mmol/L (3.5-5.0); Total Bilirubin 0.4 mg/dL (0.2-1.0); Total Protein 6.7 g/dL (6.4-8.9)
[2018-09-03 18:56] LABS: Urine Appearance Clear; Urine Bilirubin Negative (Negative); Urine Blood Negative (Negative); Urine Color Yellow; Urine Glucose Negative (Negative); Urine Ketones Negative (Negative); Urine Nitrite Negative (Negative); Urine Protein Negative (Negative); Urine Specific Gravity 1.027 (1.010-1.030); Urine Urobilinogen Negative (Negative)
[2018-09-03] MEDS ORDERED: Diazepam TAB(*) 5 MG PO ONE (19:05)
[2018-09-03] MEDS ORDERED: guaiFENesin/CODIEN 100MG-10MG* 5 ML UDC PO ONE (19:05)
[2018-09-03] MEDS ORDERED: Iohexol 350* (CONTRAST) 500 ML MDV IV ONE (20:42)
[2018-09-03] MEDS ORDERED: Amoxicillin/Clavulanate TAB* 875 MG PO ONE (21:44)
[2018-09-03] MEDS ORDERED: Albuterol HFA INHALER* 8 gm MDI INH ONE (21:46)
[2018-09-03 22:38] VITALS: BP 138/79
[2018-09-06 16:35] LABS: Bordetella pertussis PCR Negative
== END 2018-09-03 22:30 | disposition home or self-care (01) ==
LOC: ED 16:14
DX: J40 Bronchitis, not specified as acute or chronic (principal); I48.91 Unspecified atrial fibrillation; Z79.01 Long term (current) use of anticoagulants; Z87.891 Personal history of nicotine dependence
CPT/HCPCS: 36415; 70450; 71045; 71275; 80053; 81003; 83605; 84484; 85025; 85610; 85730; 87040; 87798; 96374; 99284; A9270-GY; J1885; Q9967

== ENCOUNTER 2018-11-22 10:40 | Emergency (ER) | payer BC ==
[2018-11-22] MEDS ORDERED: Ketorolac INJ* 60 MG/2 ML VIAL IM ONE (11:22)
--- NOTE | 2018-11-22 11:44 | ED ---
Back Pain - HPI Summary HPI Summary: Patient is a 58-year-old male with a history of chronic back pain with acute on chronic back pain which started 2 days ago. He states he was seen at [place] and was given pain control, muscle relaxers and steroids. He states despite these measures, he continues to have this pain. Pain is directly located over the right sciatic notch and extending down into the posterior lower extremity to the inner thigh. He denies any bladder or bowel dysfunction. He denies any numbness or tingling to the right lower extremity otherwise or weakness in the foot. Denies any foot drop. He states he has had this in the past and is given "a shot of Demerol." He states this improves his symptoms, but they were unable to give him this. He denies any trauma or pain prior to the first sign of symptoms. Symptoms are worse with standing, better with lying flat. - History of Current Complaint Chief Complaint: EDBackInjuryPain Stated Complaint: LOWER BACK PAIN PER PT Time Seen by Provider: 11/22/18 10:55 Hx Obtained From: Patient Onset/Duration: Sudden Onset Onset/Duration: Started Days Ago Timing: Constant Back Pain Location: Is Discrete @ - right lower back extending to the the leg Severity Initially: Moderate Severity Currently: Moderate Pain Intensity: 10 Pain Scale Used: 0-10 Numeric Character: Aching Aggravating Symptom(s): Movement Alleviating Symptom(s): Rest, Position Associated Signs And Symptoms: Negative: Swelling, Redness, Bruising, Fever, Weakness, Numbness, Bladder Incontinence, Bowel Incontinence, Weight Loss, Pain with Weight Bearing - Risk Factors AAA Risk Factors: Negative TAD Risk Factors: Negative Cauda Equina Risk Factors: Negative Epidural Abscess Risk Factors: Negative - Allergies/Home Medications Allergies/Adverse Reactions: Allergies Allergy/AdvReac Type Severity Reaction Status Date / Time No Known Allergies Allergy Verified 09/20/18 10:27 PMH/Surg Hx/FS Hx/Imm Hx Previously Healthy: Yes Endocrine/Hematology History: Reports: Hx Anticoagulant Therapy - Xarelto. Denies: Hx Diabetes, Hx Thyroid Disease Cardiovascular History: Reports: Hx Atrial Fibrillation, Hx Hypercholesterolemia , Other Cardiovascular Problems/Disorders - rapid afib, cardioversion Denies: Hx Congestive Heart Failure, Hx Deep Vein Thrombosis, Hx Hypertension , Hx Myocardial Infarction, Hx Pacemaker/ICD Respiratory History: Reports: Hx Sleep Apnea - not diagnosed Denies: Hx Asthma, Hx Chronic Obstructive Pulmonary Disease (COPD), Hx Lung Cancer, Hx Pneumonia, Hx Pulmonary Embolism GI History: Reports: Hx Gastroesophageal Reflux Disease Denies: Hx Gall Bladder Disease, Hx Gastrointestinal Bleed, Hx Ulcer, Hx Urosepsis History: Denies: Hx Kidney Stones, Hx Renal Disease Musculoskeletal History: Reports: Hx Back Problems Sensory History: Reports: Hx Contacts or Glasses Opthamlomology History: Reports: Hx Contacts or Glasses Neurological History: Denies: Hx Dementia, Hx Migraine, Hx Seizures, Hx Transient Ischemic Attacks (TIA) Psychiatric History: Reports: Hx Anxiety, Hx Depression Denies: Hx Schizophrenia, Hx Bipolar Disorder - Surgical History Surgery Procedure, Year, and Place: gallbladder removed Hx Anesthesia Reactions: No - Immunization History Date of Tetanus Vaccine: unknown Date of Influenza Vaccine: none Hx Pertussis Vaccination: No Immunizations Up to Date: Yes Infectious Disease History: No Infectious Disease History: Denies: Traveled Outside the [place] in Last 30 Days - Family History Known Family History: Positive: Cardiac Disease, Hypertension, Diabetes, Other - HERNIA Family History: Per EMR from 10/22/2015, negative fhx of early CAD or cardiac arrhythmias. - Social History Occupation: Employed Full-time Lives: With Family Alcohol Use: Rare Hx Substance Use: No Substance Use Type: Reports: Prescribed Substance Use Comment - Amount & Last Used: Pt states he drinks one cup a coffee a day now Hx Tobacco Use: Yes Smoking Status (MU): Former Smoker Type: Cigarettes Length of Time of Smoking/Using Tobacco: 40yrs Have You Smoked in the Last Year: Yes Review of Systems Negative: Fever, Chills, Fatigue, Skin Diaphoresis Negative: Palpitations, Chest Pain Negative: Shortness Of Breath, Cough Negative: Abdominal Pain, Vomiting, Diarrhea, Nausea Genitourinary: Negative Positive: no symptoms reported, see HPI, burning Positive: Arthralgia - right lower back over sciatic notch Neurological: Negative All Other Systems Reviewed And Are Negative: Yes Physical Exam Triage Information Reviewed: Yes Vital Signs On Initial Exam: Initial Vitals Temp Pulse Resp BP Pulse Ox 97 F 60 20 121/94 98 11/22/18 10:46 11/22/18 10:46 11/22/18 10:46 11/22/18 10:46 11/22/18 10:46 Vital Signs Reviewed: Yes Appearance: Positive: Well-Appearing, Well-Nourished Skin: Positive: Warm, Skin Color Reflects Adequate Perfusion Head/Face: Positive: Normal Head/Face Inspection Eyes: Positive: EOMI, Conjunctiva Clear Neck: Positive: Supple, No Lymphadenopathy Respiratory/Lung Sounds: Positive: Clear to Auscultation, Breath Sounds Present Cardiovascular: Positive: Pulses are Symmetrical in both Upper and Lower Extremities Musculoskeletal: Positive: Pain @ - 10/10 over R sciatic notch without pain to the spine. no step off noted. no bruising or signs of trauma Neurological: Positive: Sensory/Motor Intact, Alert, Oriented to Person Place, Time, Speech Normal Psychiatric: Positive: Normal, Affect/Mood Appropriate AVPU Assessment: Alert Diagnostics - Vital Signs Vital Signs Temp Pulse Resp BP Pulse Ox 11/22/18 10:46 97 F 60 20 121/94 98 - Laboratory Lab Statement: Any lab studies that have been ordered have been reviewed, and results considered in the medical decision making process. Back Pain Course/Dx - Course Course Of Treatment: Course of treatment, the patient is evaluated for right sided low back pain or sciatic notch extending to right posterior lower extremity into the medial inner thigh without numbness or tingling to the groin. Patient denies any bladder or bowel dysfunction. He states he has had this in the past and is given a shot of Demerol with improvement of symptoms. He was seen in the [place] ED and given a lidocaine patch, steroids, Flexeril as well as pain control. He states despite these measures he continues to have pain. He is requesting a shot on arrival. I discussed with the patient treatment options. I have agreed to give her some more pain control at this time, which will last him 3 more days until he is able to get in to see his PCP. He is also given gentle stretches as well as to use moist heat to the area. He is given an IM Toradol in the ED and is prescribed pain control. He is okay for discharge at this time. He understands return precautions for weakness, numbness, tingling or bladder or bowel dysfunction. - Diagnoses Differential Diagnosis/HQI/PQRI: Positive: Other - Sciatica, lumbar radiculopathy, P Forma syndrome, numbness and tingling Provider Diagnoses: Sciatica Discharge - Sign-Out/Discharge Documenting (check all that apply): Patient Departure Patient Received Moderate/Deep Sedation with Procedure: No - Discharge Plan Condition: Stable Disposition: HOME Prescriptions: oxyCODONE/Acetamin 10/325(NF) [Percocet 10/325 (NF)] 1 tab PO Q6H #12 tab MDD 4 Patient Education Materials: Sciatica (ED), Lumbar Radiculopathy (ED), Lower Back Exercises (ED) Referrals: Luis Riley MD [Primary Care Provider] - Additional Instructions: Moist heat to the area as much as possible Gentle stretches Call PCP for an appointment first thing in the morning Continue with all your medications as prescribed Oxycodone/acetaminophen 10 mg up to every 6 hours as needed for discomfort Continue to use ibuprofen 600 mg 3 times daily despite the use of her oxycodone - Billing Disposition and Condition Condition: STABLE Disposition: Home
[2018-11-22 12:19] VITALS: BP 136/81
== END 2018-11-22 12:18 | disposition home or self-care (01) ==
LOC: ED 10:40
DX: M54.30 Sciatica, unspecified side (principal); I48.91 Unspecified atrial fibrillation; E78.00 Pure hypercholesterolemia, unspecified; K21.9 Gastro-esophageal reflux disease without esophagitis; Z79.01 Long term (current) use of anticoagulants; Z87.891 Personal history of nicotine dependence
CPT/HCPCS: 96374; 99282; J1885

== ENCOUNTER 2019-02-12 12:49 | Emergency (ER) | payer BC ==
[2019-02-12 13:32] VITALS: BP 111/70
--- NOTE | 2019-02-12 14:41 | UC ---
Hand/Wrist HPI - HPI Summary HPI Summary: Pt presents with c/o left lateral distal thumb pain X 3-4 days. Pt denies injury. Pt has concern for FB as he was using scrub sponge that has nylon fibers. Pt denies swelling or obvious opening for FB. - History Of Current Complaint Chief Complaint: UCUpperExtremity Stated Complaint: LEFT THUMB PAIN Time Seen by Provider: 02/12/19 13:50 Hx Obtained From: Patient ?: No Onset/Duration: Gradual Onset, Lasting Days, Still Present, Worse Since - onset Severity Initially: Mild Severity Currently: Moderate - with palpation Pain Intensity: 0 Character Of Pain: Sharp, Dull, Aching Aggravating Factor(s): Other - palpation Alleviating Factor(s): Nothing Associated Signs And Symptoms: Positive: Negative Related History: Dominant Hand Right - Risk Factors Compartment Syndrome Risk Factors: Pain - Allergies/Home Medications Allergies/Adverse Reactions: Allergies Allergy/AdvReac Type Severity Reaction Status Date / Time No Known Allergies Allergy Verified 02/12/19 13:31 PMH/Surg Hx/FS Hx/Imm Hx Previously Healthy: Yes Cardiovascular History: Hypertension Other History Of: Anticoagulant Therapy - Xarelto. Negative For: HIV, Hepatitis B, Hepatitis C - Surgical History Surgical History: Yes Surgery Procedure, Year, and Place: gallbladder removed - Family History Known Family History: Positive: Cardiac Disease, Hypertension, Diabetes, Other - HERNIA Family History: Per EMR from 10/22/2015, negative fhx of early CAD or cardiac arrhythmias. - Social History Occupation: Employed Full-time Lives: With Family Alcohol Use: Rare Substance Use Type: None Substance Use Comment - Amount & Last Used: Pt states he drinks one cup a coffee a day now Smoking Status (MU): Former Smoker Type: Cigarettes Length of Time of Smoking/Using Tobacco: 40yrs Have You Smoked in the Last Year: Yes When Did the Patient Quit Smoking/Using Tobacco: 40 years ago Household Exposure Type: Cigarettes - Immunization History Most Recent Influenza Vaccination: never Most Recent Tetanus Shot: 08/13/17 Most Recent Pneumonia Vaccination: none Vaccination Up to Date: Yes Review of Systems All Other Systems Reviewed And Are Negative: Yes Constitutional: Positive: Negative Skin: Positive: Negative, Other - no erythema, no pustular discharge or obvious wound Eyes: Positive: Negative ENT: Positive: Negative Respiratory: Positive: Negative Cardiovascular: Positive: Negative Gastrointestinal: Positive: Negative Genitourinary: Positive: Negative Motor: Positive: Negative Neurovascular: Positive: Negative Musculoskeletal: Positive: Myalgia Neurological: Positive: Negative Psychological: Positive: Negative Is Patient Immunocompromised?: No Physical Exam Triage Information Reviewed: Yes Appearance: Well-Appearing Vital Signs: Initial Vital Signs Temp 98.3 F 02/12/19 13:25 Pulse 55 02/12/19 13:25 Resp 18 02/12/19 13:25 BP 111/70 02/12/19 13:25 Pulse Ox 99 02/12/19 13:25 Vital Signs Reviewed: Yes Eye Exam: Normal ENT Exam: Normal Dental Exam: Normal Neck exam: Normal Respiratory: Positive: No respiratory distress Musculoskeletal Exam: Normal Neurological Exam: Normal Psychological Exam: Normal Skin Exam: Normal Diagnostics - Radiology No standard instances Radiology Interpretation Completed By: Radiologist - IMPRESSION: OSTEOARTHRITIS. NO ACUTE OSSEOUS INJURY. IF SYMPTOMS PERSIST, RECOMMEND REPEAT IMAGING. Hand/Wrist Course/Dx - Differential Dx/Diagnosis Provider Diagnosis: Pain of left thumb Discharge - Sign-Out/Discharge Documenting (check all that apply): Patient Departure All imaging exams completed and their final reports reviewed: Yes - Discharge Plan Condition: Stable Disposition: HOME Patient Education Materials: Swollen Joint (ED), Warm Compress or Soak (ED) Referrals: Luis Riley MD [Primary Care Provider] - If Needed - Billing Disposition and Condition Condition: STABLE Disposition: Home
== END 2019-02-12 14:53 | disposition home or self-care (01) ==
LOC: UCCORT 12:49
DX: M79.645 Pain in left finger(s) (principal); I10 Essential (primary) hypertension; Z87.891 Personal history of nicotine dependence
CPT/HCPCS: 99211; G0463

== ENCOUNTER 2019-04-20 08:16 | Day surgery (SDC) | payer BC ==
--- NOTE | 2019-04-19 16:26 | HP ---
PREOPERATIVE HISTORY AND PHYSICAL: DATE OF ADMISSION/SURGERY: 04/20/19 - [facility] DATE OF OFFICE VISIT/ENCOUNTER: 04/19/19 ATTENDING SURGEON: Zoraida Martin MD * (DICTATED BY ROSSY OWEN) PROCEDURE: Left thumb partial amputation. HISTORY OF PRESENT ILLNESS: This is a 58-year-old male who recently underwent an incision and drainage of his left thumb. 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 Margins were not clear. Dr. Lantigua was consulted and recommended more significant surgical intervention for this problem. The patient has consented to proceed with a partial amputation of his left thumb. His target trimmer is Dr. Maguire. We recently obtained clearance from Dr. Maguire to proceed with surgery from his previous on 03/26/19. PAST MEDICAL HISTORY: 1. Atrial fibrillation. 2. GERD. 3. BPH. 4. Back pain. 5. Anxiety/depression. 6. Hypercholesterolemia. PAST SURGICAL HISTORY: 1. Cholecystectomy. 2. Tonsillectomy. CURRENT MEDICATIONS: 1. Aleve 1 tablet daily p.r.n. 2. Atorvastatin calcium 20 mg daily. 3. Bupropion HCL 100 mg twice a day. 4. Flecainide acetate 100 mg twice a day. 5. Flomax 0.4 mg daily. 6. Metoprolol tartrate 50 mg daily. 7. Omeprazole 40 mg daily. 8. Soma 350 mg 3 times a day p.r.n. spasm. 9. Trazodone HCL 50 mg 2 tabs q.h.s. 10. Tramadol 50 mg 1 to 2 tabs q.6 hours p.r.n. ALLERGIES: No known drug allergies. FAMILY MEDICAL HISTORY: Cardiac disease and lung cancer. SOCIAL HISTORY: The patient is self employed in construction. He is a former smoker. He quit approximately 5 years ago. Prior to that, he smoked half a pack a day for 20 years. He denies recreational drug use and does not drink alcohol. REVIEW OF SYSTEMS: Negative for general, cephalic, cardiovascular, respiratory , GI, , other musculoskeletal, integumentary, endocrine, neurologic, and hematologic symptoms. Infectious Disease: Negative for MRSA, hepatitis C, HIV. PHYSICAL EXAMINATION GENERAL: A well-developed, well-nourished 58-year-old male, in no acute distress. VITAL SIGNS: Height 5 feet 9 inches, weight 201 pounds. Pulse rate 64, blood pressure 142/74. HEENT: Normocephalic, atraumatic. Pupils are equal, round, and reactive to light and accommodation. Extraocular movements are intact. Throat is clear. NECK: Supple. No palpable lymph nodes. PULMONARY: Lungs are clear to auscultation bilaterally. No wheezes, rales, or rhonchi. CARDIOVASCULAR: Regular rate and rhythm. S1, S2. No murmurs, rubs, or gallops. No edema. ABDOMEN: Positive bowel sounds, soft, nontender. MUSCULOSKELETAL: Exam of his left thumb shows the previous surgical incision is well healed. There is no drainage, no erythema, no sign of infection. He has active flexion and extension of the thumb IP joint. NEUROLOGIC: Alert and oriented x3. Cranial nerves II through XII are intact. Sensation is intact to light touch. IMPRESSION: Left thumb squamous cell carcinoma. PLAN: The patient is scheduled to undergo left thumb partial amputation with Dr. Martin on 04/20/19. He will return to the office 10 days postop for followup and suture removal. A prescription for [place] was e-scribed to the patient's pharmacy for postoperative pain management. ROSSY OWEN [id number]/[facility] #: [id number] ERIKA
[~2019-04-20 08:16] MED LIST: Buffered Lidocaine 1% SYRIN* 1 ML/SYRINGE INTRADERM ONE; Dexamethasone IV* 4 MG/ML 1 ML (4 MG) IV SLOW PU ONE; Famotidine IV* 10 MG/ML 2 ML (20 mg) IV ONE; Lactated Ringers 1000 ML Bag* 1,000 ML IV SCH
[2019-04-20] MEDS ORDERED: Dexamethasone IV* 4 MG/ML 1 ML (4 MG) ONE (08:37)
[2019-04-20] MEDS ORDERED: Famotidine IV* 10 MG/ML 2 ML (20 mg) ONE (08:38)
[2019-04-20] MEDS ORDERED: Midazolam* 1 MG/ML 2 ML VIAL (2 MG) ONE ×2 (09:11→10:08)
[2019-04-20] MEDS ORDERED: fentaNYL* 50 MCG/ML 2 ML VIAL (100 MCG VIAL) ONE (09:11)
[2019-04-20] MEDS ORDERED: Propofol* 10 MG/ML 20 ML BTL ONE (09:11)
[2019-04-20] MEDS ORDERED: Lidocaine 2% PF * 5 ML VIAL ONE (09:11)
[2019-04-20] MEDS ORDERED: Lidocaine 1% INJ* 10 MG/ML 30 ML SDV ONE (09:32)
[2019-04-20] MEDS ORDERED: Naloxone* 0.4 MG/ML 1 ML VIAL IV PRN (09:40)
[2019-04-20] MEDS ORDERED: oxyCODONE/Acetamin 5/325 MG* TAB PO PRN (09:40)
[2019-04-20] MEDS ORDERED: fentaNYL* 50 MCG/ML 2 ML VIAL (100 MCG VIAL) IV PRN (09:40)
[2019-04-20] MEDS ORDERED: HYDROcodone/ACETAMIN 5-325 MG* 1 TAB PO PRN (09:40)
[2019-04-20] MEDS ORDERED: Ketorolac INJ* 30 MG/ML 1 ML VIAL IV PRN (09:40)
[2019-04-20 10:50] VITALS: BP 118/65
--- NOTE | 2019-04-20 18:46 | OP ---
DATE OF OPERATION: 04/20/19 [facility] DATE OF : 58 SURGEON: Dr. Martin. 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 ANESTHESIA: Local MAC. 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 OPERATIVE PROCEDURE: Partial amputation of the left thumb. ESTIMATED BLOOD LOSS: 0. TOURNIQUET TIME: About 15 minutes. INDICATIONS: Oscar is a 58-year-old male who had a painful mass at the distal aspect of his left thumb. This was removed and the pathology was consistent with an invasive squamous cell carcinoma. The patient saw Dr. Lantigua who recommended a wide excision with 5 mm margins. No further treatment was recommended. He presents for partial amputation of the left thumb. DESCRIPTION OF PROCEDURE: The patient was brought to the operating room, was given a sedation anesthetic and a digital block with 10 cc of 1% plain lidocaine. The skin of the left hand and forearm were prepped and draped in usual sterile fashion. The hand and forearm were exsanguinated and the tourniquet elevated to 250 mmHg. A fish mouth incision was centered on the IP flexion crease of the thumb. This was actually about a 1 cm margin from the previous excision mass, however, those margins were not clear. The tip of the thumb including the entire distal phalanx was removed and sent for pathology, it was marked on the radial side of the thumb. The digital neurovascular bundles are cauterized with the Bovie and then the wound was irrigated. The skin edges were reapproximated with 4-0 nylon suture in interrupted fashion and without any tension. The wound was dressed with Xeroform, 4x4, Webril and Chong wrap. The patient tolerated the procedure well and was brought to the recovery room in good condition. [id number]/[facility] #: [id number] [facility]
== END 2019-04-20 11:20 | disposition home or self-care (01) ==
LOC: OREAST 08:16
PROVIDERS: ATTEND Orthopaedic Surgery
DX: C49.12 Malignant neoplasm of connective and soft tissue of left upper limb, including shoulder (principal); I48.91 Unspecified atrial fibrillation; K21.9 Gastro-esophageal reflux disease without esophagitis; F41.8 Other specified anxiety disorders; E78.00 Pure hypercholesterolemia, unspecified; N40.0 Benign prostatic hyperplasia without lower urinary tract symptoms; Z87.891 Personal history of nicotine dependence
CPT/HCPCS: 88305; 88311; J1100; J2250; J2704; J3010